=== PATIENT | male | born 1990 ===

== ENCOUNTER 2021-11-21 13:41 | Outpatient (REF) | payer SELFPAY ==
--- NOTE | 2021-11-21 16:33 | MHC.AU.HFU ---
Hearing Instrument Follow-Up- Binaural Date of Visit: 11/21/21 Right Ear: Signs And Displays Sales Representative: Nicole Model: [place] i2000 Serial Number: [id number] Battery Size: 312 It Programmer Analyst: Size 2-60 gain Type of Dome: Large Open Type of Wax Guard: HearClear Dispensed By: [facility] Left Ear: Signs And Displays Sales Representative: Nicole Model: [place] i2000 Serial Number: [id number] Battery Size: 312 It Programmer Analyst: Size 2-60 gain Type of Dome: Large Open Type of Wax Guard: HearClear Dispensed By: [facility] Follow-Up Summary: Patient is transferring to our clinic. He reports that his left hearing aid over the last few months was slowly starting to sound softer. It will now play the start up jingle, then not amplify any sound. Both hearing aids were inspected and cleaned. The left hearing aid was placed in the electric dryer. The right hearing aid is amplifying clearly. The left hearing aid is still not producing amplified sound. Discussed options with the patient- he would like to send the left hearing aid out for repair. He plans on talking to [facility] in the upcoming months about new hearing aids, but would like to have the left side working in the meantime. The programming from both hearing aids was uploaded to [employer]. Recommendations: Patient will be contacted when the left hearing aid has returned from repair. Diagnosis Code(s): Primary Diagnosis: H90.3 Bilateral Sensorineural Hearing Loss Signature: Provider: Mary Alfonso, [facility]
== END 2021-11-21 13:42 | disposition home or self-care (01) ==
LOC: HO.HAP 13:41
PROVIDERS: Visit Provider Internal Medicine
DX: Z46.1 Encounter for fitting and adjustment of hearing aid (principal); H90.3 Sensorineural hearing loss, bilateral
CPT/HCPCS: V5011

== ENCOUNTER 2021-12-16 09:25 | Outpatient (REF) | payer SELFPAY | END 2021-12-16 09:26 | disposition home or self-care (01) | LOC: HO.HAP 09:25 | DX: Z46.1 Encounter for fitting and adjustment of hearing aid (principal); H90.3 Sensorineural hearing loss, bilateral | CPT/HCPCS: V5014 ==

== ENCOUNTER 2023-07-06 09:34 | Outpatient (REF) | payer OTHER, SELFPAY | END 2023-07-06 09:35 | disposition home or self-care (01) | LOC: HO.SH 09:34 | PROVIDERS: Visit Provider Physician Assistant Medical | DX: Z01.118 Encounter for examination of ears and hearing with other abnormal findings (principal); H90.3 Sensorineural hearing loss, bilateral | CPT/HCPCS: 92557; 92567 ==

== ENCOUNTER 2023-07-06 10:26 | Outpatient (REF) | payer SELFPAY ==
--- NOTE | 2023-07-06 11:10 | MHC.AU.HA3 ---
Hearing Instrument Follow-Up- Binaural Date of Visit: 07/06/23 Right Ear: Raf, Model, Color, Serial Number: Nicole Menendez [id number], [id number] Dog Catcher Repair Warranty: Dog Catcher Loss and Damage Warranty: [facility] Service Plan: none Battery Size: 312 End Polisher/Slim Tube: Size 2-60 gain Earmold/Dome/CShell/SlimTip:resound medium occluded Type of Wax Guard: HearClear Dispensed By: [facility] Left Ear: Raf, Model, Color, Serial Number: Nicole Menednez i2000 [id number] Dog Catcher Repair Warranty: Dog Catcher Loss and Damage Warranty: [facility] Service Plan: none Battery Size: 312 End Polisher/Slim Tube: Size 2-60 gain Earmold/Dome/CShell/SlimTip: med resound occluded Type of Wax Guard: HearClear Dispensed By: [facility] Follow-Up Summary: Here for evaluation. Reports one hearing aid is broken and neither sound as good as they used to. Reports aids are 8-10 years old. Found right missing tail, the slot for the tail is broken, cannot replace tail. Found both wax guards clogged. Listening check positive after cleaning. Switched from open to closed domes. Checked settings, adjusted acoustics. Pt reports big improvement after cleaning and adjustment. He is planning to go through [facility] for new hearing aids. Recommendations: Recommendations: Hearing instrument follow-up or maintenance as needed. Diagnosis Code(s): Primary Diagnosis: H90.3 Bilateral Sensorineural Hearing Loss Signature: Provider: Nena Danielle, [facility]
== END 2023-07-06 10:27 | disposition home or self-care (01) ==
LOC: HO.HAP 10:26
PROVIDERS: Visit Provider Physician Assistant Medical
DX: Z46.1 Encounter for fitting and adjustment of hearing aid (principal); H90.3 Sensorineural hearing loss, bilateral
CPT/HCPCS: 92593

== ENCOUNTER 2023-10-12 10:47 | Outpatient (REF) | payer SELFPAY | END 2023-10-12 10:48 | disposition home or self-care (01) | LOC: HO.HAP 10:47 | PROVIDERS: Visit Provider Family Medicine | DX: Z46.1 Encounter for fitting and adjustment of hearing aid (principal); H90.3 Sensorineural hearing loss, bilateral | CPT/HCPCS: V5267 ==